=== PATIENT | male | born 1955 | race American Indian/Alaskan Native ===

== ENCOUNTER 2016-02-28 22:11 | Emergency (ER) | payer MEDICAID ==
--- NOTE | 2016-02-28 22:52 | Emergency Department Report ---
ED Shortness of Breath HPI - General Chief Complaint: Dyspnea/Respdistress Stated Complaint: MICHEL Time Seen by Provider: 02/28/16 22:22 Source: patient, EMS Mode of arrival: Stretcher Limitations: No Limitations - History of Present Illness Initial Comments: 60-year-old male presents to the emergency department via EMS complaining of the acute onset of shortness of breath just prior to arrival. His tree of difficulty breathing. He states he was trying to get some juice when symptoms began. Patient denies any pain. EMS reports that on their arrival the patient was only able to speak in 2 word sentences. Audible wheezing was noted in the patient had a room air saturation in the 80s. Patient was administered 5 mg of albuterol and 125 mg of IV Solu-Medrol prior to arrival. At this time, the patient reports feeling back to normal. There are no other complaints. MD Complaint: shortness of breath -: Sudden, This evening Severity: moderate Consistency: now resolved Improves With: bronchodilators Worsens With: nothing Known History Of: other (cancer) Associated Symptoms: denies other symptoms Treatments Prior to Arrival: bronchodilator, other (steroids) - Related Data Home Medications Medication Instructions Recorded Confirmed Last Taken oxyCODONE /ACETAMINOPHEN [Percocet 1 tab PO Q6HR PRN 02/28/16 02/28/16 Unknown 5/325] Allergies Allergy/AdvReac Type Severity Reaction Status Date / Time No Known Allergies Allergy Verified 02/28/16 22:42 ED Review of Systems ROS: Stated complaint: MICHEL Other details as noted in HPI Comment: All other systems reviewed and negative Respiratory: shortness of breath, wheezing ED Past Medical Hx - Past Medical History Previous Medical History?: Yes Hx of Cancer: Yes (penile cancer) - Surgical History Past Surgical History?: Yes Additional Surgical History: R. chest port, lymph node removal - Family History Family history: no significant - Social History Smoking Status: Never Smoker Substance Use Type: None - Medications Home Medications: Home Medications Medication Instructions Recorded Confirmed Last Taken Type oxyCODONE /ACETAMINOPHEN [Percocet 1 tab PO Q6HR PRN 02/28/16 02/28/16 Unknown History 5/325] ED Physical Exam - General Limitations: No Limitations General appearance: alert, in no apparent distress - Head Head exam: Present: atraumatic, normocephalic - Eye Eye exam: Present: normal appearance, PERRL, EOMI - ENT ENT exam: Present: normal exam, normal orophraynx, mucous membranes moist - Neck Neck exam: Present: normal inspection, full ROM. Absent: tenderness - Respiratory Respiratory exam: Present: normal lung sounds bilaterally. Absent: respiratory distress - Cardiovascular Cardiovascular Exam: Present: normal rhythm, tachycardia, normal heart sounds - GI/Abdominal GI/Abdominal exam: Present: soft, normal bowel sounds. Absent: distended, tenderness - Extremities Exam Extremities exam: Present: normal inspection, full ROM. Absent: tenderness - Back Exam Back exam: Present: normal inspection, full ROM. Absent: tenderness - Neurological Exam Neurological exam: Present: alert, oriented X3. Absent: motor sensory deficit - Skin Skin exam: Present: warm, dry, intact ED Course Vital Signs 02/28/16 02/28/16 02/29/16 22:30 22:46 01:13 Temperature 98.7 F Pulse Rate 103 H Respiratory 20 18 Rate Blood Pressure 138/79 O2 Sat by Pulse 98 100 Oximetry ED Medical Decision Making - Lab Data Result diagrams: 02/28/16 22:50 02/28/16 22:50 - Radiology Data Radiology results: image reviewed interpreted by me: Chest x-ray shows a possible nodule in the right upper lobe. There is a port to the right chest wall. No other abnormalities noted. CTA of the chest shows no acute pulmonary embolism. - Medical Decision Making Lab and imaging results reviewed and discussed with the patient. Patient has remained asymptomatic in the emergency department. Patient will be discharged home at this time. - Differential Diagnosis PE, bronchitis, reactive airway disease Critical care attestation.: If time is entered above; I have spent that time in minutes in the direct care of this critically ill patient, excluding procedure time. ED Disposition Clinical Impression: Acute dyspnea Disposition: DISCHARGED TO HOME OR SELFCARE Is pt being admited?: No Condition: Stable Instructions: Dyspnea (ED) Referrals: PRIMARY CARE, [Primary Care Provider] - 3-5 Days Time of Disposition: 01:54
[2016-02-28 23:29] LABS: Basophils % (Auto) 0.1 % (0.0-1.8); Eosinophils % (Auto) 0.9 % (0.0-4.3); Hematocrit 33.6 % (35.5-45.6); Hemoglobin 11.1 gm/dl (11.8-15.2); Mean Corpuscular HGB Conc 33 % (32-34); Mean Corpuscular Hemoglobin 30 pg (28-32); Mean Corpuscular Volume 92 fl (84-94); Platelet Count 192 K/mm3 (140-440); Red Blood Count 3.67 M/mm3 (3.65-5.03); Red Cell Distribution Width 13.8 % (13.2-15.2); White Blood Count 3.8 K/mm3 (4.5-11.0)
[2016-02-28 23:50] LABS: Alanine Aminotransferase 15 units/L (7-56); Albumin 3.5 g/dL (3.9-5); Albumin/Globulin Ratio 1.4 %; Alkaline Phosphatase 74 units/L (35-129); BUN/Creatinine Ratio 14.28; Bilirubin,Total 0.2 mg/dL (0.1-1.2); Blood Urea Nitrogen 20 mg/dL (9-20); Calcium 8.3 mg/dL (8.4-10.2); Carbon Dioxide 23 mmol/L (22-30); Chloride 105.3 mmol/L (98-107); Glucose 123 mg/dL (75-100); Potassium 4.4 mmol/L (3.6-5.0); Sodium 142 mmol/L (137-145)
[2016-02-28 23:51] LABS: Anion Gap 18 mmol/L
[2016-02-29] MEDS ORDERED: NACL ONE (00:05)
--- NOTE | 2016-02-29 02:26 | Cat Scan Report ---
FINAL REPORT EXAM: CT ANGIO CHEST HISTORY: acute dyspnea, h/o cancer TECHNIQUE: Spiral CTA of the chest after the uneventful administration of IV contrast. Multiplanar reformations. 100 mL Omnipaque IV. PRIORS: None. FINDINGS: Chest: The main and bilateral proximal pulmonary ateries are normally opacified without endoluminal filling defects. No apparent aneurysm, pseudoaneurysm or aortic dissection. No significant lymph node enlargement or axillary adenopathy. Right-sided anupam-catheter noted. Lungs show too numerous to count, small nodular densities scattered bilaterally, most pronounced in the lower lobes. Largest nodular density noted in right lower lobe measures approximately 9 mm and largest in left lower lobe measures approximately 7 mm. No discrete parenchymal mass, focal consolidation or pleural effusions. No apparent pneumothorax. Mildly lobular, hypodense focus noted in left hepatic lobe measures approximately 3 cm in maximal diameter. Subcentimeter hypodensity also in left hepatic lobe, nonspecific. Multilevel sclerotic foci in the thoracolumbar spine, including ivory vertebra in the T6 and T12 levels. Sclerotic foci also noted in the manubrium and especially mid sternum and scattered in bilateral ribs, most pronounced in the left 6th posterolateral rib. IMPRESSION: 1. No evidence of large vessel or central pulmonary emboli. 2. Multiple bilateral pulmonary nodules suspicious for neoplastic or metastatic disease. 3. Hypodense lesions in left hepatic lobe also suspicious for metastatic disease, and findings compatible with osseous metastatic disease. Unexpected nonemergent findings. [facility] assistant manager of operations to notify client.
[2016-02-29 02:31] VITALS: BP 135/70
== END 2016-02-29 02:31 | disposition home or self-care (01) ==
LOC: ED 22:11
DX: R06.00 Dyspnea, unspecified (principal); Z85.89 Personal history of malignant neoplasm of other organs and systems
CPT/HCPCS: 36415; 71010; 71275; 80053; 84484; 85025; 85379; 99285; Q9967